=== PATIENT | male | born 1990 ===

== ENCOUNTER 2018-10-13 13:03 | Emergency (ER) | payer OTHER ==
[2018-10-13 14:14] VITALS: BP 150/90; PULSE 81; RESP 16; TEMP 98.5; O2SAT 97
--- NOTE | 2018-10-13 16:08 | ED PDOC ---
Lower Extremity Pain/Injury Time Seen by Provider: 10/13/18 14:17 Chief Complaint (Nursing): Lower Extremity Problem/Injury Chief Complaint (Provider): left big toe pain History Per: Patient History/Exam Limitations: no limitations Onset/Duration Of Symptoms: Intermittent Episodes, Other (x2 weeks ) Current Symptoms Are (Timing): Better Additional Complaint(s): 28 year old male presents to the ED for evaluation of intermittent left big toe pain ongoing for 2 weeks. At onset of the pain, patient states he was running a lot of errands and cleaning the house so he cannot recall a specific injury but believes he bumped his toe. 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 His toe pain was very intense last night and his toe was red, swollen and tender, prompting ED visit. The symptoms are better today and he has been applying ice to the area. Patient has not taken any medication [employer]. Otherwise, he denies any other complaints or fever. PMD: Cannot recall Past Medical History Reviewed: Historical Data, Nursing Documentation, Vital Signs Vital Signs: Last Vital Signs Temp 98.5 F 10/13/18 14:11 Pulse 81 10/13/18 14:11 Resp 16 10/13/18 14:11 BP 150/90 10/13/18 14:11 Pulse Ox 97 10/13/18 14:11 - Medical History PMH: No Chronic Diseases - Surgical History Other surgeries: procedure to nose - Family History Family History: States: Other Other Family History: gout in dad - Social History Current smoker - smoking cessation education provided: No (quit smoking a year ago) Alcohol: Social Drugs: Cannabis (admitted to smoking weed now and then ) - Home Medications Home Medications: Ambulatory Orders Medication Instructions Recorded Acetaminophen [Acetaminophen 8 650 mg PO Q8 PRN #21 tablet.er 10/13/18 Hour] Indomethacin 50 mg PO Q8 PRN #21 capsule 10/13/18 - Allergies Allergies/Adverse Reactions: Allergies Allergy/AdvReac Type Severity Reaction Status Date / Time No Known Allergies Allergy Verified 10/13/18 14:11 Review of Systems ROS Statement: Except As Marked, All Systems Reviewed And Found Negative Constitutional: Negative for: Fever Musculoskeletal: Positive for: Other (left big toe pain ) Skin: Positive for: Other (redness, swelling and tendernes to left big toe ) Physical Exam - Reviewed Nursing Documentation Reviewed: Yes Vital Signs Reviewed: Yes - Physical Exam Comments: GENERAL APPEARANCE: Patient is awake, alert, oriented x 3, in no acute distress; resting comfortably. Patient limped into the ED SKIN: Warm, dry; (-) cyanosis. LEFT FOOT: To first metatarsal joint, there is edema and tenderness with faint erythema; Edema does extend to the proximal aspect of the 1st toe (+) decreased flexion secondary to pain (-) skin break, (-) evidence of cellulitis; (+) sensation intact throughout; (+) distal pulses; (+) cap refill less than 2 seconds. Remainder of foot and ankle are nontender with full ROM CARDIOVASCULAR: Normal rate and rhythm CHEST: (-) rales, (-) wheezing, (-)rhonchi. Breath sounds equal bilaterally. Respirations even and nonlabored. NEUROLOGIC: (+) distal sensation. NECK: Supple, FROM ENT: Mucus membranes moist. Airway patent, (-) stridor. - ECG O2 Sat by Pulse Oximetry: 97 (RA) Pulse Ox Interpretation: Normal Medical Decision Making Medical Decision Making: Time: 1440 Impression: acute left foot/toe pain to consider sprain vs new onset of gout Plan: Toradol 30mg IM Foot left 3 views [RAD] Re-evaluation 1630 Foot XR reviewed, radiology report follows Date of service: 10/13/2018 PROCEDURE: Left Foot Radiographs. HISTORY: 1st metatarsal pain COMPARISON: None. TECHNIQUE: 3 views obtained. FINDINGS: BONES: Bone alignment and mineralization are normal. There is no acute displaced fracture or bone destruction. JOINTS: Normal. SOFT TISSUES: Normal. OTHER FINDINGS: None. IMPRESSION: No acute displaced fracture or dislocation. Results discussed with patient with understanding. Given no PMHx and young age, gout is a possibility but unlikely. Patient expresses concern due to being on his feet all day daily and is requesting a surgical shoe. Surgical shoe provided to patient to assist ambulation. Patient agreeable with working diagnosis of a sprain and advised close follow up for further diagnostics with podiatry/ortho. Patient in agreement with plan. Compliance with NSAIDs and RICE stressed to patient. Patient advised he is outside treatment window for cholchicine and patient apprehensive about medrol dose pack treatment. Diet choices for possibility of gout discussed. On re-evaluation, patient reports improvement of symptoms. On exam, patient remains AAOx3, in no acute distress. Foot remains NV intact. Vitals stable. Lab/Diagnostic results d/w the patient in great detail. Diagnosis of acute foot and toe pain, sprain vs new onset gout d/w the patient. Based on history, exam and diagnostic results, plan will be for outpatient follow up with podiatry/ortho. Patient instructed to follow-up with pmd / referral provided / the clinic in 1- 2 days without fail. Advised to take medication as prescribed. Return to the emergency room at any time for any new or worsening symptoms. Patient states he fully agrees with and understands discharge instructions. States that he agrees with the plan and disposition. Verbalized and repeated discharge instructions and plan. I have given the patient opportunity to ask any additional questions. Scribe Attestation: Documented by Johnson Jefferson, acting as a scribe for Geeta Myrick PA-C. Provider Scribe Attestation: All medical record entries made by the Scribe were at my direction and personally dictated by me. I have reviewed the chart and agree that the record accurately reflects my personal performance of the history, physical exam, medical decision making, and the department course for this patient. I have also personally directed, reviewed, and agree with the discharge instructions and disposition. Disposition - Clinical Impression Clinical Impression: Toe pain, Foot pain, Sprain of toe - Patient ED Disposition Is Patient to be Admitted: No Counseled Patient/Family Regarding: Studies Performed, Diagnosis, Need For Followup, Rx Given - Disposition Referrals: Podiatry Clinic [Outside] Shannan Kathleen MD [Staff Provider] - Yazan Johnston MD [Staff Provider] - Disposition: Routine/Home Disposition Time: 16:30 Condition: STABLE Additional Instructions: The emergency medical care you received today was directed at your acute symptoms. If you were prescribed any medication, please fill it and take as directed. It may take several days for your symptoms to resolve. Return to the Emergency Department if your symptoms worsen, do not improve, or if you have any other problems. Please contact your doctor in 2 days for re-evaluation and follow up / or call one of the physicians/clinics you have been referred to that are listed on the Patient Visit Information form that is included in your discharge packet. Bring any paperwork you were given at discharge with you along with any medications you are taking to your follow up visit. Our treatment cannot replace ongoing medical care by a primary care provider (PCP) outside of the emergency department. Prescriptions: Acetaminophen [Acetaminophen 8 Hour] 650 mg PO Q8 PRN #21 tablet.er PRN Reason: Pain, Moderate (4-7) Indomethacin 50 mg PO Q8 PRN #21 capsule PRN Reason: Pain, Moderate (4-7) Instructions: Gout, Metatarsalgia, Lifestyle Changes to Manage Gout, Muscle and Bone Pain (DC), Toe Injury (DC), Low Purine Diet Forms: [facility] (Ugandan), [facility] ED School/Work Excuse Print Language: ROMANSH - POA Present On Arrival: None
--- NOTE | 2018-10-13 17:02 | RAD ---
Date of service: 10/13/2018 PROCEDURE: Left Foot Radiographs. HISTORY: 1st metatarsal pain COMPARISON: None. TECHNIQUE: 3 views obtained. FINDINGS: BONES: Bone alignment and mineralization are normal. There is no acute displaced fracture or bone destruction. JOINTS: Normal. SOFT TISSUES: Normal. OTHER FINDINGS: None. IMPRESSION: No acute displaced fracture or dislocation.
== END 2018-10-13 17:13 | disposition home or self-care (01) ==
LOC: H.ER 13:03
DX: S93.502A Unspecified sprain of left great toe, initial encounter (principal); S93.602A Unspecified sprain of left foot, initial encounter; X58.XXXA Exposure to other specified factors, initial encounter; Y92.89 Other specified places as the place of occurrence of the external cause
CPT/HCPCS: 73630; 96372; 99283; J1885